=== PATIENT | female | born 1945 ===

== ENCOUNTER 2018-09-22 12:34 | Emergency (ER) | payer MEDICARE ==
[2018-09-22 12:58] VITALS: RESP 18; BMI 28.3
[2018-09-22] MEDS ORDERED: Oxycodone/Acetaminophen 5/325 mg Tab PO STA (13:52)
--- NOTE | 2018-09-22 15:29 | ED PDOC ---
Arrival/HPI - General Chief Complaint: Lower Extremity Problem/Injury Time Seen by Provider: 09/22/18 13:37 Historian: Patient - History of Present Illness Narrative History of Present Illness (Text): 09/22/18 13:47 A 73 year old female with no significant past medical history includes presents to the emergency department complaining of lower left leg pain for the past 3 weeks. Patient reports she has seen a specialist for her pain but the pain persists and reports her toes are swollen. Patient denies any fever, chills, shortness of breath, chest pain, headache, dizziness, or any other complaints. PMD: Lucille Oden Time/Duration: Other (earlier today) Symptom Onset: Sudden Symptom Course: Unchanged Activities at Onset: Light Context: Home Past Medical History - Provider Review Nursing Documentation Reviewed: Yes - Cardiac Hx Cardiac Disorders: No - Pulmonary Hx Respiratory Disorders: No - Neurological Hx Neurological Disorder: No - HEENT Hx HEENT Disorder: No - Renal Hx Renal Disorder: No - Endocrine/Metabolic Hx Diabetes Mellitus Type 1: Yes - Hematological/Oncological Hx Blood Disorders: No - Integumentary Hx Dermatological Disorder: No - Gastrointestinal Hx Gastrointestinal Disorders: No - Genitourinary/Gynecological Hx Genitourinary Disorders: No - Psychiatric Hx Psychophysiologic Disorder: No Hx Substance Use: No - Surgical History Other/Comment: left shoulder sx 12 years ago. - Anesthesia Hx Anesthesia: Yes Family/Social History - Physician Review Nursing Documentation Reviewed: Yes Family/Social History: No Known Family HX Smoking Status: Never Smoked Hx Alcohol Use: No Hx Substance Use: No Allergies/Home Meds Allergies/Adverse Reactions: Allergies No Known Allergies Allergy (Verified 09/22/18 13:06) Home Medications: Home Meds Medication Instructions Recorded Confirmed RX: Gabapentin [Neurontin] 300 mg PO HS 09/22/18 09/22/18 Sulindac 150 mg PO BID 09/22/18 09/22/18 Review of Systems - Physician Review All systems were reviewed & negative as marked: Yes - Review of Systems Constitutional: absent: Fevers, Other (chills) Respiratory: absent: SOB Cardiovascular: absent: Chest Pain Musculoskeletal: Other (lower left leg pauin) Neurological: absent: Headache, Dizziness Physical Exam - Physical Exam Narrative Physical Exam (Text): 09/22/18 13:47 Gen: VS reviewed, alert, well developed, well nourished, nontoxic, mild distre ss. ENT: normal pharynx. Eye: EOMI, PERRL. Neck: no JVD, supple, no adenopathy. CV: regular rate, regular rhythm, no rubs, no murmur, no gallops, S1, S2, pulses equal and strong. Pulm: no distress, clear to auscultation, no wheeze, no rhonchi, breath sounds equal, no rales. Abd: soft, nontender, no guarding, no rebound, no rigidity, normal bowel sounds. Ext: severe pain to entire lower left leg even to superficial palpation, difficult to palpate distal pulse due to severity of pain, no cyanosis to lower leg or foot. Skin: good color noted, no rash, no cyanosis. Psych: responds appropriately to questions, normal affect. Neuro: oriented x 3, CN2-12 intact grossly, motor intact, sensation intact. Vital Signs Reviewed: Yes Vital Signs Temp Pulse Resp BP Pulse Ox 09/22/18 12:57 98.5 F 93 H 18 111/67 95 Temperature: Afebrile Blood Pressure: Normal Pulse: Tachycardic Respiratory Rate: Normal Appearance: Positive for: Non-Toxic Pain Distress: Moderate Medical Decision Making ED Course and Treatment: 09/22/18 13:47 Impression: A 73 year old female presents to the emergency department complaining of lower left leg pain. Plan: -- Oxycodone -- Ultrasound of lower extremity -- Reassess and disposition Prior Visits: Notes and results from previous visits were reviewed. Progress Notes: 09/22/18 13:[address] Sneed. Patient was seen in office for diabetic neuropathy which was shown on EMG. 09/22/18 17:26 pain improved, patient stable for dc. - RAD Interpretation Radiology Orders: 09/22/18 14:02 LOWER EXT ART NON-INV COMPL [US] Stat - Medication Orders Current Medication Orders: Discontinued Medications Oxycodone/Acetaminophen (Percocet 5/325 Mg Tab) 2 tab PO STAT STA Stop: 09/22/18 13:53 Last Admin: 09/22/18 14:01 Dose: 2 tab MAR Pain Assessment Document 09/22/18 14:01 LA (Rec: 09/22/18 14:03 LA [email or web address]) Pain Reassessment Is this a pain reassessment? No Sleep Is patient sleeping during reassessment? No Presence of Pain Presence of Pain Yes Pain Scale Used Protocol: PSCALES Pain Scale Used Numeric Location Left, Right or Bilateral Left Upper or Lower Lower Pain Location Body Site Leg Description Intensity of Pain at present 9 - Scribe Statement The provider has reviewed the documentation as recorded by the Rukhsana Chung All medical record entries made by the Scribe were at my direction and personally dictated by me. I have reviewed the chart and agree that the record accurately reflects my personal performance of the history, physical exam, medical decision making, and the department course for this patient. I have also personally directed, reviewed, and agree with the discharge instructions and disposition. Disposition/Present on Arrival - Present on Arrival Any Indicators Present on Arrival: No History of DVT/PE: No History of Uncontrolled Diabetes: No Urinary Catheter: No History of Decub. Ulcer: No History Surgical Site Infection Following: None - Disposition Have Diagnosis and Disposition been Completed?: Yes Diagnosis: Diabetic neuropathy Disposition: HOME/ ROUTINE Disposition Time: 17:26 Patient Plan: Discharge Condition: STABLE Discharge Instructions (ExitCare): Diabetic Neuropathy (DC) Print Language: CITIZEN OF [place] Prescriptions: oxyCODONE/Acetaminophen [Percocet 5/325 mg Tab] 1 ea PO QID #20 tab Forms: [employer] (Spanish)
[2018-09-22 17:43] VITALS: BP 110/63; PULSE 87; TEMP 98.3; O2SAT 100
--- NOTE | 2018-09-22 19:02 | US ---
PROCEDURE: Lower extremity RAYMUNDO exam HISTORY: Peripheral vascular disease with pain and claudication. Diabetes PHYSICIAN(S): Trevin Whatley MD. FINDINGS: The resting RAYMUNDO's are normal: right, 1.22and left, 1.24. The brachial systolic pressures are symmetric. The high thigh pressures and waveforms are relatively normal. The calf PVR waveforms augment normally. No significant gradients are noted across the thighs. The ankle and metatarsal waveforms are relatively normal and symmetric. No significant pressure gradients are noted across the lower legs. IMPRESSION: 1. Normal RAYMUNDO and PVR examination at rest.
== END 2018-09-22 17:46 | disposition home or self-care (01) ==
LOC: ED 12:34
DX: E10.40 Type 1 diabetes mellitus with diabetic neuropathy, unspecified (principal); M79.662 Pain in left lower leg